=== PATIENT | female | born 1935 | race Caucasian/White ===

== ENCOUNTER 2017-11-07 20:51 | Inpatient (IN) | payer MEDICARE, OTHER ==
[~2017-11-07] VITALS: Ht 162.6 cm; Wt 71.9 kg
[~2017-11-07 20:51] MED LIST: GLIP10TA13 PO; HYDR25TA6 PO; LISI-170 PO; LISI40TA PO; METF500T4 PO; METO25TA35 PO; RIVA20TA PO; SIMV20TA3 PO; WARF5TAB PO
[2017-11-07] MEDS ORDERED: LISI-167 PO (21:11)
[2017-11-07] MEDS ORDERED: ASPIRIN 81 MG TABLET CHEW PO ONE (21:30)
[2017-11-07] MEDS ORDERED: SODIUM CHLORIDE 0.9% 1,000ML IVBOLUS ONE (21:30)
[2017-11-07 21:38] LABS: BASOPHILS # (AUTO) 0.04 x10^3/uL (0-0.1); BASOPHILS % (AUTO) 0 % (0-1); EOSINOPHILS % (AUTO) 1 % (1-7); LYMPHOCYTES # (AUTO) 3.06 x10^3/uL (1-3.4); LYMPHOCYTES % (AUTO) 27 % (22-44); MD NO; MEAN CORPUSCULAR HEMOGLOBIN 30.6 pg (27.0-34.8); MEAN CORPUSCULAR HGB CONC 33.7 g/dL (32.4-35.8); MEAN CORPUSCULAR VOLUME 90.9 fL (80-100); MEAN PLATELET VOLUME 9.8 fL (7.4-10.4); MONOCYTES # (AUTO) 0.69 x10^3/uL (0.2-0.8); MONOCYTES % (AUTO) 6 % (2-9); NEUTROPHILS # (AUTO) 7.41 x10^3/uL (1.8-6.8); NEUTROPHILS % (AUTO) 66 % (42-75); PLATELET COUNT 208 x10^3/uL (130-400); RED BLOOD COUNT 4.83 x10^6/uL (3.82-5.3); RED CELL DISTRIBUTION WIDTH 14.8 % (9.6-15.2)
[2017-11-07] MEDS ORDERED: ASPIRIN 81 MG TABLET CHEW ONE (21:41)
[2017-11-07 21:46] LABS: INTERNATIONAL NORMALIZED RATIO 4.5 (0.93-1.1)
[2017-11-07 21:48] LABS: CHLORIDE 107 mmol/L (98-107)
[2017-11-07 21:49] LABS: ALANINE AMINOTRANSFERASE 18 U/L (12-78); ALBUMIN 3.1 g/dL (3.4-5.0); ANION GAP 13 mmol/L (5-15); CALCIUM 8.4 mg/dL (8.5-10.1); CREATININE 1.12 mg/dL (0.55-1.02)
[2017-11-07 21:53] LABS: ALKALINE PHOSPHATASE 100 U/L (45-117); BILIRUBIN,TOTAL 0.9 mg/dL (0.2-1.0); TOTAL PROTEIN 7.2 g/dL (6.4-8.2)
[2017-11-07] MEDS ORDERED: POTASSIUM CHLORIDE 20 MEQ TAB.ER.PRT ONE (22:05)
[2017-11-07] MEDS ORDERED: POTASSIUM CHLORIDE 20 MEQ TAB.ER.PRT PO ONE ×2 (22:30→23:30)
[2017-11-07] MEDS: SODIUM CHLORIDE 0.9% 1,000 ML IV SCH (23:22)
[2017-11-07] MEDS: SIMVASTATIN 20 MG TABLET PO SCH (23:30)
[2017-11-07] MEDS ORDERED: DOCUSATE 100 MG CAPSULE PO PRN (23:30)
[2017-11-07] MEDS ORDERED: morphine SULFATE 10 MG/ML, 1ML IVPush PRN (23:30)
[2017-11-07] MEDS ORDERED: OXYcodone IR 5MG TABLET PO PRN (23:30)
[2017-11-07] MEDS ORDERED: ONDANSETRON 2MG/ML, 2ML IVPush PRN (23:30)
[2017-11-07] MEDS ORDERED: ENALAPRILAT 1.25 MG/ML, 2ML IVPush PRN (23:30)
[2017-11-07] MEDS ORDERED: POLYETHYLENE GLYCOL 17 GM PACKET PO PRN (23:30)
[2017-11-07] MEDS ORDERED: BISACODYL 10 MG SUPP PR PRN (23:30)
[2017-11-07] MEDS ORDERED: POTASSIUM CHLORIDE 40 MEQ in SODIUM CHLORIDE 0.9% 500 ML IV ONE (23:30)
[2017-11-07] MEDS ORDERED: hydrALAzine 20 MG/ML, 1ML IVPush PRN (23:30)
[2017-11-07 23:44] LABS: HEMOGLOBIN A1C 8.1 % (4.2-6.3)
[2017-11-07 23:45] LABS: FREE T4 (FREE THYROXINE) 1.5 ng/dL (0.76-1.46); THYROID STIMULATING HORMONE 1.99 mIU/L (0.358-3.740)
[2017-11-08] MEDS: INSULIN LISPRO 100 UNITS/ML, PEN SQ-INSULIN SCH ×5 (00:35→20:14)
[2017-11-08] MEDS ORDERED: POTASSIUM CHLORIDE 20 MEQ TAB.ER.PRT ONE (00:44)
[2017-11-08] MEDS ORDERED: ACETAMINOPHEN 325 MG TABLET ONE (02:59)
[2017-11-08] MEDS: ACETAMINOPHEN 325 MG TABLET PO PRN (03:04)
[2017-11-08 03:11] LABS: BASOPHILS # (AUTO) 0.03 x10^3/uL (0-0.1); BASOPHILS % (AUTO) 0 % (0-1); EOSINOPHILS # (AUTO) 0.04 x10^3/uL (0-0.4); EOSINOPHILS % (AUTO) 0 % (1-7); LYMPHOCYTES # (AUTO) 2.04 x10^3/uL (1-3.4); LYMPHOCYTES % (AUTO) 22 % (22-44); MD NO; MEAN CORPUSCULAR HEMOGLOBIN 30.9 pg (27.0-34.8); MEAN CORPUSCULAR HGB CONC 34.3 g/dL (32.4-35.8); MEAN CORPUSCULAR VOLUME 90.1 fL (80-100); MEAN PLATELET VOLUME 9.6 fL (7.4-10.4); MONOCYTES # (AUTO) 0.65 x10^3/uL (0.2-0.8); MONOCYTES % (AUTO) 7 % (2-9); NEUTROPHILS # (AUTO) 6.66 x10^3/uL (1.8-6.8); NEUTROPHILS % (AUTO) 71 % (42-75); PLATELET COUNT 221 x10^3/uL (130-400); RED BLOOD COUNT 4.46 x10^6/uL (3.82-5.3); RED CELL DISTRIBUTION WIDTH 14.8 % (9.6-15.2)
[2017-11-08 03:21] LABS: ALBUMIN 2.9 g/dL (3.4-5.0); ANION GAP 8 mmol/L (5-15); CALCIUM 7.9 mg/dL (8.5-10.1); CHLORIDE 109 mmol/L (98-107)
[2017-11-08 03:26] LABS: ALANINE AMINOTRANSFERASE 15 U/L (12-78); ALKALINE PHOSPHATASE 81 U/L (45-117); CREATININE 1.02 mg/dL (0.55-1.02); TOTAL PROTEIN 6.6 g/dL (6.4-8.2); TRIGLYCERIDES 446 mg/dL (50-200)
[2017-11-08 03:27] LABS: CHOL/HDL RATIO 6.2; CHOLESTEROL, TOTAL 149 mg/dL (140-239); HDL CHOL % 16 % (28-40); HDL CHOLESTEROL (DIRECT) 24 mg/dL (40-60); TROPONIN I 0.023 ng/mL (0.000-0.045)
[2017-11-08] MEDS ORDERED: OMNIPAQUE 350 MG/ML, 100ML BOTTLE ONE (06:06)
[2017-11-08] MEDS: SODIUM CHLORIDE 0.9% 1,000 ML IV SCH (07:02)
[2017-11-08 08:55] VITALS: BP 135/80
[2017-11-08] MEDS ORDERED: METOPROLOL TARTRATE 25 MG TABLET PO SCH (09:00)
[2017-11-08 09:55] LABS: TROPONIN I < 0.015 ng/mL (0.000-0.045)
[2017-11-08 09:56] LABS: INTERNATIONAL NORMALIZED RATIO 4.23 (0.93-1.1); PROTHROMBIN TIME 42.4 Seconds (9.6-11.5)
[2017-11-08] MEDS ORDERED: REGADENOSON 0.4 MG/5 ML SYRINGE ONE (10:10)
[2017-11-08] MEDS ORDERED: MAGNESIUM SULFATE PMX 2GM/50ML 50 ML IV ONE (10:30)
[2017-11-08] MEDS ORDERED: HOLD COUMADIN MC PRN (11:30)
[2017-11-08] MEDS: LISINOPRIL 10 MG TABLET PO SCH ×2 (13:56→20:06)
[2017-11-08 14:16] VITALS: BP 153/80
[2017-11-08 19:14] VITALS: BP 133/81
[2017-11-08] MEDS: SIMVASTATIN 20 MG TABLET PO SCH (20:06)
[2017-11-09 02:16] VITALS: BP 149/81
[2017-11-09 05:48] LABS: INTERNATIONAL NORMALIZED RATIO 4.42 (0.93-1.1); PROTHROMBIN TIME 44.2 Seconds (9.6-11.5)
[2017-11-09] MEDS ORDERED: HOLD COUMADIN MC PRN (08:00)
[2017-11-09 08:10] VITALS: BP 146/79
[2017-11-09] MEDS: METOPROLOL TARTRATE 25 MG TABLET PO SCH ×2 (09:06→21:35)
[2017-11-09] MEDS: INSULIN LISPRO 100 UNITS/ML, PEN SQ-INSULIN SCH ×4 (09:07→21:37)
[2017-11-09] MEDS: LISINOPRIL 10 MG TABLET PO SCH ×2 (09:07→21:35)
[2017-11-09 10:11] LABS: CULTURE INDICATED? YES; MICROSCOPIC INDICATED
[2017-11-09 13:28] VITALS: BP 154/85
[2017-11-09] MEDS ORDERED: CEFTRIAXONE PMX 1GM/50ML 50 ML IV SCH (15:30)
[2017-11-09] MEDS ORDERED: metFORMIN 500 MG TABLET PO ONE (16:30)
[2017-11-09 21:05] VITALS: BP 117/82
[2017-11-09] MEDS: SIMVASTATIN 20 MG TABLET PO SCH (21:36)
[2017-11-10 02:45] VITALS: BP 130/74
[2017-11-10 05:25] LABS: INTERNATIONAL NORMALIZED RATIO 2.94 (0.93-1.1); PROTHROMBIN TIME 29.6 Seconds (9.6-11.5)
[2017-11-10 05:30] LABS: ANION GAP 7 mmol/L (5-15); CHLORIDE 108 mmol/L (98-107); CREATININE 0.74 mg/dL (0.55-1.02)
[2017-11-10] MEDS ORDERED: MAGNESIUM SULFATE PMX 2GM/50ML 50 ML IV ONE (07:00)
[2017-11-10] MEDS: INSULIN LISPRO 100 UNITS/ML, PEN SQ-INSULIN SCH ×2 (07:13→11:22)
[2017-11-10] MEDS: METOPROLOL TARTRATE 25 MG TABLET PO SCH (08:00)
[2017-11-10] MEDS: LISINOPRIL 10 MG TABLET PO SCH (08:00)
[2017-11-10] MEDS ORDERED: POTASSIUM CHLORIDE 20 MEQ TAB.ER.PRT PO SCH (08:00)
[2017-11-10 08:03] VITALS: BP 167/92
[2017-11-10] MEDS ORDERED: metFORMIN XR 500 MG TAB.ER.24H PO SCH (09:00)
[2017-11-10] MEDS: ACETAMINOPHEN 325 MG TABLET PO PRN (11:20)
[2017-11-10] MEDS ORDERED: CEFD300C37 PO (12:56)
[2017-11-10] MEDS ORDERED: WARFARIN 2.5 MG TABLET PO-COUM ONE (18:00)
== END 2017-11-10 14:35 | disposition home or self-care (01) | DRG 871 ==
LOC: ED 21:27 → EDIP 22:02 → 5SO 11-08 08:44 → DCLOUNGE 11-10 14:13
PROVIDERS: ADMIT Internal Medicine; ATTEND Internal Medicine
DX: A41.9 Sepsis, unspecified organism (principal); N17.0 Acute kidney failure with tubular necrosis; E44.0 Moderate protein-calorie malnutrition; D68.69 Other thrombophilia; E11.65 Type 2 diabetes mellitus with hyperglycemia; E83.42 Hypomagnesemia; I11.0 Hypertensive heart disease with heart failure; I50.32 Chronic diastolic (congestive) heart failure; I48.2 Chronic atrial fibrillation; N39.0 Urinary tract infection, site not specified; R07.89 Other chest pain; I34.0 Nonrheumatic mitral (valve) insufficiency; R91.1 Solitary pulmonary nodule; B95.1 Streptococcus, group B, as the cause of diseases classified elsewhere; E78.00 Pure hypercholesterolemia, unspecified; E87.6 Hypokalemia; T45.515A Adverse effect of anticoagulants, initial encounter; Z91.19 Patient's noncompliance with other medical treatment and regimen; Z90.13 Acquired absence of bilateral breasts and nipples; Z88.8 Allergy status to other drugs, medicaments and biological substances; Z79.899 Other long term (current) drug therapy; Z79.01 Long term (current) use of anticoagulants; Z85.3 Personal history of malignant neoplasm of breast; Z68.27 Body mass index [BMI] 27.0-27.9, adult
CPT/HCPCS: 36415; 71045; 71260; 78452; 80048; 80053; 80061; 81001; 82962; 83036; 83735; 83880; 84439; 84443; 84484; 85025; 85379; 85610; 87086; 87147; 93005; 93017; 93306; 96365; 96366; J0696; J2785; J3480; Q9967; A9502; C9898; J1815; J2270; J3475; J7030; J7040

== ENCOUNTER 2018-12-26 18:56 | Emergency (ER) | payer OTHER, MEDICAID ==
[~2018-12-26] VITALS: Ht 165.1 cm; Wt 71.0 kg
[~2018-12-26 18:56] MED LIST changes: +AMOX1TAB64 PO; +CEFD300C37 PO; +INSU100I13 SQ-INSULIN; +LISI-167 PO; +METF500T17 PO; -METF500T4 PO
--- NOTE | 2018-12-26 19:25 | NUR ---
PT NOW SITTING UP WITH DAUGHTER AT BEDSIDE. PT NOW A/O X 4 AND STATES SHE IS FEELING BETTER.
[2018-12-26 20:05] VITALS: BP 137/81
[2018-12-26 20:17] LABS: BASOPHILS # (AUTO) 0.05 x10^3/uL (0-0.1); BASOPHILS % (AUTO) 1 % (0-1); EOSINOPHILS # (AUTO) 0.11 x10^3/uL (0-0.4); EOSINOPHILS % (AUTO) 1 % (1-7); LYMPHOCYTES # (AUTO) 1.56 x10^3/uL (1-3.4); LYMPHOCYTES % (AUTO) 18 % (22-44); MD NO; MEAN CORPUSCULAR HEMOGLOBIN 30.4 pg (27.0-34.8); MEAN CORPUSCULAR HGB CONC 32.5 g/dL (32.4-35.8); MEAN CORPUSCULAR VOLUME 93.6 fL (80-100); MONOCYTES # (AUTO) 0.67 x10^3/uL (0.2-0.8); MONOCYTES % (AUTO) 8 % (2-9); NEUTROPHILS # (AUTO) 6.16 x10^3/uL (1.8-6.8); NEUTROPHILS % (AUTO) 72 % (42-75); PLATELET COUNT 222 x10^3/uL (130-400); RED BLOOD COUNT 4.84 x10^6/uL (3.82-5.3); RED CELL DISTRIBUTION WIDTH 15.6 % (9.6-15.2)
[2018-12-26 20:28] LABS: INTERNATIONAL NORMALIZED RATIO 0.97 (0.93-1.1); PROTHROMBIN TIME 10.2 Seconds (9.6-11.5)
[2018-12-26 20:31] LABS: ALBUMIN 3.5 g/dL (3.4-5.0); ANION GAP 9 mmol/L (5-15); CALCIUM 9.2 mg/dL (8.5-10.1); CHLORIDE 107 mmol/L (98-107)
[2018-12-26 20:38] LABS: ALANINE AMINOTRANSFERASE 16 U/L (12-78); ALKALINE PHOSPHATASE 85 U/L (45-117); BILIRUBIN,TOTAL 0.6 mg/dL (0.2-1.0); CREATININE 0.83 mg/dL (0.55-1.02); TOTAL PROTEIN 7.4 g/dL (6.4-8.2); TROPONIN I < 0.015 ng/mL (0.000-0.045)
--- NOTE | 2018-12-26 20:48 | NUR ---
PT RESTING WITHOUT DISTRESS. PT WITH VSS AT THIS TIME AND NO REPORTED ALOC PER DAUGHTER.
== END 2018-12-26 21:32 | disposition home or self-care (01) ==
LOC: ED 19:15
DX: S00.03XA Contusion of scalp, initial encounter (principal); E11.9 Type 2 diabetes mellitus without complications; I48.91 Unspecified atrial fibrillation; E78.00 Pure hypercholesterolemia, unspecified; I10 Essential (primary) hypertension; W18.30XA Fall on same level, unspecified, initial encounter; Y93.89 Activity, other specified; Y92.89 Other specified places as the place of occurrence of the external cause; Y99.8 Other external cause status
CPT/HCPCS: 36415; 70450; 71045; 72020; 72050; 80053; 84484; 85025; 85610; 85730; 93005; 99284

== ENCOUNTER 2019-09-02 19:18 | Inpatient (IN) | payer OTHER, MEDICAID ==
[~2019-09-02] VITALS: Ht 162.6 cm; Wt 68.9 kg
[~2019-09-02 19:18] MED LIST changes: +SIMV20TA19 PO; -SIMV20TA3 PO
--- NOTE | 2019-09-02 19:25 | NUR ---
PT VENECIA MUKHERJEE FROM [facility]. PER PT AND EMS, PT HAD 6 EPISODES OF BRIGHT RED BLOODY STOOL SINCE 1600 TODAY. PT DENIES ANY HX OF GIB. PT IS ON XARELTO FOR AFIB. SPO2 WAS 89% ON RA PER EMS, SO PT WAS PLACED ON 2L O2 NC WITH SPO2 INCREASING TO 94%. OTHERWISE PT'S VSS. FSBG WAS 147 PER EMS. PT ARRIVES TO ED A&OX4, IN NO APPARENT DISTRESS. ER PA WAS IN TO SEE PT IMMEDIATELY. POC RV'WD WITH HER. NO FAMILY PRESENT AT THIS TIME.
[2019-09-02] MEDS ORDERED: SODIUM CHLORIDE FLUSH 10ML SYR IVF ONE (19:30)
[2019-09-02] MEDS ORDERED: SODIUM CHLORIDE 0.9% 1,000ML IVBOLUS ONE (19:30)
[2019-09-02 19:45] LABS: BASOPHILS # (AUTO) 0.02 x10^3/uL (0-0.1); BASOPHILS % (AUTO) 0 % (0-1); EOSINOPHILS # (AUTO) 0.25 x10^3/uL (0-0.4); EOSINOPHILS % (AUTO) 3 % (1-7); LYMPHOCYTES # (AUTO) 1.61 x10^3/uL (1-3.4); LYMPHOCYTES % (AUTO) 19 % (22-44); MD NO; MEAN CORPUSCULAR HEMOGLOBIN 30.6 pg (27.0-34.8); MEAN CORPUSCULAR HGB CONC 32.5 g/dL (32.4-35.8); MEAN CORPUSCULAR VOLUME 93.9 fL (80-100); MEAN PLATELET VOLUME 8.9 fL (7.4-10.4); MONOCYTES # (AUTO) 0.76 x10^3/uL (0.2-0.8); MONOCYTES % (AUTO) 9 % (2-9); NEUTROPHILS # (AUTO) 5.97 x10^3/uL (1.8-6.8); NEUTROPHILS % (AUTO) 69 % (42-75); PLATELET COUNT 220 x10^3/uL (130-400); RED BLOOD COUNT 4.75 x10^6/uL (3.82-5.3); RED CELL DISTRIBUTION WIDTH 15.5 % (9.6-15.2)
[2019-09-02 19:55] LABS: INTERNATIONAL NORMALIZED RATIO 1.09 (0.93-1.1); PROTHROMBIN TIME 11.6 Seconds (9.6-11.5)
[2019-09-02 19:56] LABS: ALANINE AMINOTRANSFERASE 10 U/L (12-78); ALBUMIN 3.6 g/dL (3.4-5.0); ANION GAP 6 mmol/L (5-15); CHLORIDE 112 mmol/L (98-107); CREATININE 0.96 mg/dL (0.55-1.02)
--- NOTE | 2019-09-02 19:58 | NUR ---
IV BOLUS INFUSING. PT UNDERSTANDS POC. WATCHING TV IN GURNEY, NO S/S OF DISTRESS.
[2019-09-02 19:59] LABS: ALKALINE PHOSPHATASE 68 U/L (45-117); BILIRUBIN,TOTAL 0.6 mg/dL (0.2-1.0); TOTAL PROTEIN 7.2 g/dL (6.4-8.2)
--- NOTE | 2019-09-02 21:10 | NUR ---
PT AMBULATED TO BR WITH STAND BY ASSIST.
--- NOTE | 2019-09-02 21:10 | NUR ---
[facility] refused patient, BY Sada Lowe for addmission at this time. Forms faxed for PSN to Katty Westbrook
[2019-09-02] MEDS ORDERED: METF500T27 PO (21:23)
[2019-09-02] MEDS ORDERED: METO25TA91 PO (21:23)
[2019-09-02] MEDS ORDERED: LABETALOL 5MG/ML, 20ML IVPush PRN (21:30)
[2019-09-02] MEDS ORDERED: ONDANSETRON 2MG/ML, 2ML IVPush PRN (21:30)
[2019-09-02] MEDS ORDERED: LIDODERM 5% PATCH TD PRN (21:30)
[2019-09-02] MEDS ORDERED: ACETAMINOPHEN 325 MG TABLET PO PRN (21:30)
[2019-09-02] MEDS ORDERED: ACET325T26 PO (21:44)
[2019-09-02] MEDS ORDERED: FLUT9.9S NAS (21:44)
[2019-09-02] MEDS ORDERED: LIDO1ADH51 TP (21:44)
[2019-09-02] MEDS ORDERED: LOSA25TA2 PO (21:44)
[2019-09-02] MEDS ORDERED: EMPA25TA PO (21:44)
[2019-09-02] MEDS ORDERED: CHOL10003 PO (21:44)
[2019-09-02] MEDS ORDERED: GABA-826 PO ×2 (21:44→21:46)
[2019-09-02] MEDS ORDERED: CALC-680 PO (21:44)
[2019-09-02] MEDS ORDERED: RIVA15TA PO (21:44)
[2019-09-02] MEDS ORDERED: MONT10TA11 PO (21:44)
[2019-09-02] MEDS ORDERED: FENO45CA PO (21:44)
[2019-09-02] MEDS ORDERED: ONDA4TAB7 PO (21:44)
[2019-09-02] MEDS ORDERED: DICL100G29 TP (21:44)
[2019-09-02] MEDS ORDERED: AMLO10TA8 PO (21:44)
[2019-09-02] MEDS ORDERED: CYAN2000 PO (21:44)
[2019-09-02] MEDS ORDERED: LACT1CAP44 PO (21:44)
[2019-09-02] MEDS ORDERED: TRAM100T13 PO (21:44)
[2019-09-02 22:30] VITALS: BP 153/86
[2019-09-02] MEDS: GABAPENTIN 100 MG CAPSULE PO SCH (22:43)
[2019-09-02] MEDS: SIMVASTATIN 20 MG TABLET PO SCH (22:44)
[2019-09-02] MEDS: MONTELUKAST 10 MG TABLET PO SCH (22:44)
[2019-09-03 02:00] VITALS: BP 162/90
[2019-09-03] MEDS: INSULIN LISPRO 100 UNITS/ML, PEN SQ-INSULIN SCH ×4 (08:41→20:57)
[2019-09-03 08:54] VITALS: BP 159/91
[2019-09-03] MEDS: GABAPENTIN 100 MG CAPSULE PO SCH ×3 (09:16→20:54)
[2019-09-03] MEDS: LOSARTAN 25MG TABLET PO SCH (09:16)
[2019-09-03] MEDS: AMLODIPINE 2.5 MG TABLET PO SCH (09:16)
[2019-09-03] MEDS: METOPROLOL SUCCINATE 25 MG TAB.ER.24H PO SCH (09:16)
[2019-09-03] MEDS ORDERED: LIDODERM REMOVE PATCH NOTE XX SCH (10:00)
[2019-09-03 13:01] VITALS: BP 162/87
[2019-09-03] MEDS: PANTOPROZOLE 40MG TABLET PO SCH (16:52)
[2019-09-03 20:14] VITALS: BP 185/74
[2019-09-03 20:43] VITALS: BP 130/73
[2019-09-03] MEDS: SIMVASTATIN 20 MG TABLET PO SCH (20:55)
[2019-09-03] MEDS: MONTELUKAST 10 MG TABLET PO SCH (20:55)
[2019-09-04 01:49] VITALS: BP 128/75
[2019-09-04] MEDS: PANTOPROZOLE 40MG TABLET PO SCH ×2 (05:29→16:52)
[2019-09-04] MEDS: INSULIN LISPRO 100 UNITS/ML, PEN SQ-INSULIN SCH ×3 (07:24→16:52)
[2019-09-04 07:32] VITALS: BP 129/74
[2019-09-04] MEDS: LOSARTAN 25MG TABLET PO SCH (08:48)
[2019-09-04] MEDS: METOPROLOL SUCCINATE 25 MG TAB.ER.24H PO SCH (08:48)
[2019-09-04] MEDS: GABAPENTIN 100 MG CAPSULE PO SCH ×2 (08:48→16:52)
[2019-09-04] MEDS: AMLODIPINE 2.5 MG TABLET PO SCH (08:49)
[2019-09-04] MEDS ORDERED: PANT20TA2 PO (11:08)
[2019-09-04] MEDS ORDERED: HYDR25SU3 PR (11:28)
[2019-09-04] MEDS ORDERED: HYDROCORTISONE 25 MG SUPP PR SCH (11:30)
== END 2019-09-04 16:55 | DRG 378 ==
LOC: ED 21:09 → EDIP 21:10 → 4WST 22:12
PROVIDERS: ADMIT Family Medicine; ATTEND Internal Medicine
DX: K92.2 Gastrointestinal hemorrhage, unspecified (principal); I48.20 Chronic atrial fibrillation, unspecified; I50.30 Unspecified diastolic (congestive) heart failure; D68.69 Other thrombophilia; I34.0 Nonrheumatic mitral (valve) insufficiency; I11.0 Hypertensive heart disease with heart failure; Z88.8 Allergy status to other drugs, medicaments and biological substances; E11.9 Type 2 diabetes mellitus without complications; E78.00 Pure hypercholesterolemia, unspecified; E78.5 Hyperlipidemia, unspecified; I27.20 Pulmonary hypertension, unspecified; J45.909 Unspecified asthma, uncomplicated; Z66 Do not resuscitate; Z79.01 Long term (current) use of anticoagulants; Z79.4 Long term (current) use of insulin
CPT/HCPCS: 36415; 80053; 82962; 83036; 85014; 85018; 85025; 85610; 85730; 86850; 86900; 93005; 96360; G0378; J7030

== ENCOUNTER 2019-11-06 14:34 | Inpatient (IN) | payer OTHER, MEDICAID ==
[~2019-11-06] VITALS: Ht 162.6 cm; Wt 66.1 kg
[~2019-11-06 14:34] MED LIST changes: +ACET325T26 PO; +AMLO10TA8 PO; +CALC-680 PO; +CHOL10003 PO; +CYAN2000 PO; +DICL100G29 TP; +EMPA25TA PO; +FENO45CA PO; +FLUT9.9S NAS; +GABA-826 PO; +HYDR25SU3 PR; +LACT1CAP44 PO; +LIDO1ADH51 TP; +LOSA25TA2 PO; +METF500T27 PO; +METO25TA91 PO; +MONT10TA11 PO; +ONDA4TAB7 PO; +PANT20TA2 PO; +RIVA15TA PO; +TRAM100T13 PO
[2019-11-06] MEDS ORDERED: ASPIRIN 81 MG TABLET CHEW PO ONE (15:00)
[2019-11-06] MEDS ORDERED: ASPIRIN 81 MG TABLET CHEW ONE (15:10)
[2019-11-06] MEDS ORDERED: NITROGLYCERIN OINT 2%, 1GM TP ONE ×2 (15:10→16:00)
[2019-11-06 15:18] LABS: BASOPHILS # (AUTO) 0.02 x10^3/uL (0-0.1); BASOPHILS % (AUTO) 0 % (0-1); EOSINOPHILS # (AUTO) 0.13 x10^3/uL (0-0.4); EOSINOPHILS % (AUTO) 2 % (1-7); LYMPHOCYTES # (AUTO) 2.03 x10^3/uL (1-3.4); LYMPHOCYTES % (AUTO) 25 % (22-44); MD NO; MEAN CORPUSCULAR HEMOGLOBIN 29.8 pg (27.0-34.8); MEAN CORPUSCULAR HGB CONC 33.1 g/dL (32.4-35.8); MEAN CORPUSCULAR VOLUME 89.8 fL (80-100); MEAN PLATELET VOLUME 9.5 fL (7.4-10.4); MONOCYTES # (AUTO) 0.66 x10^3/uL (0.2-0.8); MONOCYTES % (AUTO) 8 % (2-9); NEUTROPHILS # (AUTO) 5.33 x10^3/uL (1.8-6.8); NEUTROPHILS % (AUTO) 65 % (42-75); PLATELET COUNT 235 x10^3/uL (130-400); RED BLOOD COUNT 5.19 x10^6/uL (3.82-5.3); RED CELL DISTRIBUTION WIDTH 15.1 % (9.6-15.2)
[2019-11-06 15:19] LABS: ALBUMIN 3.8 g/dL (3.4-5.0); ANION GAP 7 mmol/L (5-15); CALCIUM 9.2 mg/dL (8.5-10.1); CHLORIDE 110 mmol/L (98-107); CREATININE 0.83 mg/dL (0.55-1.02)
--- NOTE | 2019-11-06 15:21 | NUR ---
PT'S DAUGHTER IN ROOM. PER DAUGHTER, PT C/O CP AT 0630 TODAY AT [facility], NITRO 3 TABS GIVEN AT FACILITY. WENT TO REVERSE UNIT OPERATOR, EKG DONE, SENT TO ED FOR ABNORMAL EKG AND CP. PT CURRENTLY DENIES CP. DENIES NAUSEA, DIZZINESS, LIGHTHEADEDNESS, COLD SWEATS. PT. PT A&OX4, RESP EVEN & UNLABORED, SPEECH CLEAR, SKIN WNL. FURNACE HELPER APPLIED: NSR. LAST ORAL INTAKE: 0700 TODAY. LAST BM: TODAY
[2019-11-06 15:24] LABS: TROPONIN I < 0.015 ng/mL (0.000-0.045)
[2019-11-06] MEDS ORDERED: AMLO5TAB10 PO (15:31)
[2019-11-06] MEDS ORDERED: RIVA15TA PO (15:31)
--- NOTE | 2019-11-06 15:31 | NUR ---
PER DAUGHTER, PT HAD ASA 81MG AT 0645 TODAY. WILL CONSULT ERP RE: ASA AND NTG ORDER.
[2019-11-06] MEDS ORDERED: SODIUM CHLORIDE FLUSH 10ML SYR IVF ONE (16:00)
--- NOTE | 2019-11-06 16:03 | NUR ---
PER DR MATHIS, APPLY NTG PASTE AND CANCEL ASA ORDER.
--- NOTE | 2019-11-06 17:01 | NUR ---
PT REPORT TO CARLOS ZIMMERMAN RN. PT CARE TRANSFERRED.
--- NOTE | 2019-11-06 17:45 | NUR ---
PT REPORT FROM JAZ ZIMMERMAN. PT CARE TO BE RESUMED.
--- NOTE | 2019-11-06 18:23 | NUR ---
PT REPORT CALLED TO JAZ LACEY FOR ROOM [id number]
--- NOTE | 2019-11-06 18:23 | NUR ---
PT AMBULATORY TO SU BR; GAIT STEADY; ACCOMPANIED BY DIGITAL STRATEGY DIRECTOR.
[2019-11-06] MEDS ORDERED: POLYETHYLENE GLYCOL 17 GM PACKET PO PRN (18:30)
[2019-11-06] MEDS ORDERED: MORPHINE SULFATE 4 MG/ML, 1ML IVPush PRN (18:30)
[2019-11-06] MEDS ORDERED: LIDODERM 5% PATCH TD PRN (18:30)
[2019-11-06] MEDS ORDERED: NITROGLYCERIN 0.4 MG BOTTLE (25 TABS) SL PRN (18:30)
[2019-11-06] MEDS ORDERED: ONDANSETRON 4 MG TABLET PO PRN (18:30)
[2019-11-06] MEDS ORDERED: hydrALAzine 20 MG/ML, 1ML IVPush PRN (18:30)
[2019-11-06] MEDS ORDERED: BISACODYL 10 MG SUPP PR PRN (18:30)
[2019-11-06 19:25] VITALS: BP 204/103
[2019-11-06 19:57] VITALS: BP 166/99
[2019-11-06] MEDS: FENOFIBRATE 54 MG TABLET PO SCH (21:00)
[2019-11-06] MEDS ORDERED: PANTOPRAZOLE 20MG TABLET PO SCH (21:00)
[2019-11-06] MEDS ORDERED: HYDROCORTISONE 25 MG SUPP PR SCH (21:00)
[2019-11-06] MEDS: SODIUM CHLORIDE FLUSH 10ML SYR IVF SCH (21:00)
[2019-11-06] MEDS: MONTELUKAST 10 MG TABLET PO SCH (21:00)
[2019-11-06] MEDS: ACETAMINOPHEN 325 MG TABLET PO SCH (21:01)
[2019-11-06] MEDS: GABAPENTIN 100 MG CAPSULE PO SCH (21:01)
[2019-11-06] MEDS: CALCIUM CITRATE 950 MG TABLET PO SCH (21:01)
[2019-11-06] MEDS: AMLODIPINE 5 MG TABLET PO SCH (21:01)
[2019-11-06] MEDS: SIMVASTATIN 20 MG TABLET PO SCH (21:01)
[2019-11-06 21:30] LABS: TROPONIN I < 0.015 ng/mL (0.000-0.045)
[2019-11-06 22:17] VITALS: BP 166/76
[2019-11-06] MEDS: INSULIN LISPRO 100 UNITS/ML, PEN SQ-INSULIN SCH (22:31)
[2019-11-07] MEDS ORDERED: PANT20TA2 PO (01:25)
[2019-11-07 01:38] VITALS: BP 153/85
[2019-11-07 03:28] LABS: ANION GAP 6 mmol/L (5-15); CALCIUM 9.4 mg/dL (8.5-10.1); CHLORIDE 111 mmol/L (98-107); CREATININE 0.77 mg/dL (0.55-1.02)
[2019-11-07 03:31] LABS: TROPONIN I < 0.015 ng/mL (0.000-0.045)
[2019-11-07] MEDS: ASPIRIN 81 MG TABLET EC PO SCH (05:37)
[2019-11-07 06:46] VITALS: BP 128/75
[2019-11-07] MEDS: INSULIN LISPRO 100 UNITS/ML, PEN SQ-INSULIN SCH ×4 (07:00→20:53)
[2019-11-07] MEDS ORDERED: REGADENOSON 0.4 MG/5 ML SYRINGE ONE (08:28)
[2019-11-07] MEDS: GABAPENTIN 100 MG CAPSULE PO SCH ×3 (09:00→20:52)
[2019-11-07] MEDS ORDERED: SENNA/DOCUSATE TABLET PO SCH (09:00)
[2019-11-07] MEDS ORDERED: FENOFIBRATE 54 MG TABLET PO SCH (09:00)
[2019-11-07] MEDS ORDERED: POTASSIUM CHLORIDE 20 MEQ TAB.ER.PRT PO ONE (10:00)
[2019-11-07 13:58] VITALS: BP 174/64
[2019-11-07] MEDS: ACETAMINOPHEN 325 MG TABLET PO SCH ×2 (14:49→20:51)
[2019-11-07] MEDS: CALCIUM CITRATE 950 MG TABLET PO SCH ×2 (14:49→20:51)
[2019-11-07] MEDS: CHOLECALCIFEROL 1,000 UNIT TABLET PO SCH (14:50)
[2019-11-07] MEDS: LOSARTAN 25MG TABLET PO SCH (14:50)
[2019-11-07] MEDS: METOPROLOL SUCCINATE 25 MG TAB.ER.24H PO SCH (14:50)
[2019-11-07] MEDS: PANTOPRAZOLE 20MG TABLET PO SCH (14:51)
[2019-11-07] MEDS: AMLODIPINE 5 MG TABLET PO SCH ×2 (14:51→20:51)
[2019-11-07] MEDS: RIVAROXABAN 15 MG TABLET PO SCH (14:51)
[2019-11-07] MEDS: SODIUM CHLORIDE FLUSH 10ML SYR IVF SCH ×2 (14:56→20:51)
[2019-11-07] MEDS ORDERED: POTASSIUM CHLORIDE 20 MEQ TAB.ER.PRT ONE ×2 (16:12→16:22)
[2019-11-07 20:00] VITALS: BP 162/81
[2019-11-07] MEDS: FENOFIBRATE 54 MG TABLET PO SCH (20:51)
[2019-11-07] MEDS: MONTELUKAST 10 MG TABLET PO SCH (20:52)
[2019-11-07] MEDS: SIMVASTATIN 20 MG TABLET PO SCH (20:52)
[2019-11-07] MEDS ORDERED: SCOPOLAMINE 1MG PATCH TD SCH (21:00)
[2019-11-07] MEDS ORDERED: LIDODERM REMOVE PATCH NOTE XX SCH (21:00)
[2019-11-08 00:49] VITALS: BP 100/55
[2019-11-08] MEDS: ASPIRIN 81 MG TABLET EC PO SCH (05:44)
[2019-11-08 06:45] LABS: BASOPHILS # (AUTO) 0.02 x10^3/uL (0-0.1); BASOPHILS % (AUTO) 0 % (0-1); EOSINOPHILS # (AUTO) 0.11 x10^3/uL (0-0.4); EOSINOPHILS % (AUTO) 2 % (1-7); LYMPHOCYTES # (AUTO) 1.71 x10^3/uL (1-3.4); LYMPHOCYTES % (AUTO) 27 % (22-44); MD NO; MEAN CORPUSCULAR VOLUME 90.9 fL (80-100); MEAN PLATELET VOLUME 9.3 fL (7.4-10.4); MONOCYTES % (AUTO) 11 % (2-9); NEUTROPHILS # (AUTO) 3.72 x10^3/uL (1.8-6.8); NEUTROPHILS % (AUTO) 59 % (42-75); PLATELET COUNT 203 x10^3/uL (130-400); RED BLOOD COUNT 4.78 x10^6/uL (3.82-5.3); RED CELL DISTRIBUTION WIDTH 14.7 % (9.6-15.2)
[2019-11-08 06:46] VITALS: BP 144/76
[2019-11-08 06:51] LABS: ANION GAP 5 mmol/L (5-15); CALCIUM 9.5 mg/dL (8.5-10.1); CHLORIDE 112 mmol/L (98-107); CREATININE 0.89 mg/dL (0.55-1.02)
[2019-11-08] MEDS: CHOLECALCIFEROL 1,000 UNIT TABLET PO SCH (08:07)
[2019-11-08] MEDS: ACETAMINOPHEN 325 MG TABLET PO SCH (08:07)
[2019-11-08] MEDS: AMLODIPINE 5 MG TABLET PO SCH (08:07)
[2019-11-08] MEDS: CALCIUM CITRATE 950 MG TABLET PO SCH (08:07)
[2019-11-08] MEDS: RIVAROXABAN 15 MG TABLET PO SCH (08:07)
[2019-11-08] MEDS: GABAPENTIN 100 MG CAPSULE PO SCH ×2 (08:07→16:08)
[2019-11-08] MEDS: PANTOPRAZOLE 20MG TABLET PO SCH (08:08)
[2019-11-08] MEDS: LOSARTAN 25MG TABLET PO SCH (08:08)
[2019-11-08] MEDS: METOPROLOL SUCCINATE 25 MG TAB.ER.24H PO SCH (08:08)
[2019-11-08] MEDS: INSULIN LISPRO 100 UNITS/ML, PEN SQ-INSULIN SCH ×3 (08:09→16:14)
[2019-11-08] MEDS: SODIUM CHLORIDE FLUSH 10ML SYR IVF SCH (08:14)
[2019-11-08] MEDS ORDERED: POTASSIUM CHLORIDE 20 MEQ TAB.ER.PRT PO ONE (09:00)
[2019-11-08 12:29] VITALS: BP 122/78
[2019-11-09] MEDS ORDERED: AMLODIPINE 5 MG TABLET PO SCH (09:00)
== END 2019-11-08 18:07 | DRG 304 ==
LOC: ED 15:27 → EDIP 16:26 → 5SO 18:30
PROVIDERS: ADMIT Internal Medicine; ATTEND Hospitalist
DX: I16.0 Hypertensive urgency (principal); J96.01 Acute respiratory failure with hypoxia; I50.32 Chronic diastolic (congestive) heart failure; D68.59 Other primary thrombophilia; R07.9 Chest pain, unspecified; I34.0 Nonrheumatic mitral (valve) insufficiency; E78.5 Hyperlipidemia, unspecified; I11.0 Hypertensive heart disease with heart failure; J45.909 Unspecified asthma, uncomplicated; I48.0 Paroxysmal atrial fibrillation; E11.9 Type 2 diabetes mellitus without complications; I45.10 Unspecified right bundle-branch block; Z85.3 Personal history of malignant neoplasm of breast; Z90.13 Acquired absence of bilateral breasts and nipples; Z88.8 Allergy status to other drugs, medicaments and biological substances; Z80.8 Family history of malignant neoplasm of other organs or systems; Z83.49 Family history of other endocrine, nutritional and metabolic diseases; Z79.01 Long term (current) use of anticoagulants; Z87.891 Personal history of nicotine dependence; Z79.84 Long term (current) use of oral hypoglycemic drugs
CPT/HCPCS: 36415; 71045; 78452; 80048; 82040; 82962; 84484; 85025; 93005; 93017; 99285; G0378; J2785; A9502; C9898; J1815

== ENCOUNTER 2020-03-30 12:47 | Emergency (ER) | payer OTHER, MEDICAID ==
[~2020-03-30] VITALS: Ht 162.6 cm; Wt 70.9 kg
[~2020-03-30 12:47] MED LIST changes: +AMLO5TAB10 PO; -WARF5TAB PO; +WARF5TAB2 PO
[2020-03-30] MEDS ORDERED: [UNRECOGNIZED DRUG - OTHER] (13:30)
[2020-03-30] MEDS ORDERED: OMEP-110 PO (13:30)
[2020-03-30] MEDS ORDERED: TRAM50TA2 PO (13:30)
[2020-03-30 13:36] LABS: BASOPHILS # (AUTO) 0.01 x10^3/uL (0-0.1); BASOPHILS % (AUTO) 0 % (0-1); EOSINOPHILS # (AUTO) 0.17 x10^3/uL (0-0.4); EOSINOPHILS % (AUTO) 2 % (1-7); LYMPHOCYTES # (AUTO) 1.13 x10^3/uL (1-3.4); LYMPHOCYTES % (AUTO) 10 % (22-44); MD NO; MEAN CORPUSCULAR HEMOGLOBIN 28.8 pg (27.0-34.8); MEAN CORPUSCULAR HGB CONC 31.6 g/dL (32.4-35.8); MEAN CORPUSCULAR VOLUME 91.2 fL (80-100); MONOCYTES # (AUTO) 0.63 x10^3/uL (0.2-0.8); MONOCYTES % (AUTO) 6 % (2-9); NEUTROPHILS # (AUTO) 9.09 x10^3/uL (1.8-6.8); NEUTROPHILS % (AUTO) 82 % (42-75); PLATELET COUNT 271 x10^3/uL (130-400); RED BLOOD COUNT 4.56 x10^6/uL (3.82-5.3); RED CELL DISTRIBUTION WIDTH 15.2 % (9.6-15.2)
--- NOTE | 2020-03-30 13:37 | NUR ---
JAZ WAGNER FROM [facility] CALLED TO GIVE REPORT. REPORT SAME FROM EMS. [facility] - [phone].
[2020-03-30 13:43] LABS: ALBUMIN 3.2 g/dL (3.4-5.0); ANION GAP 9 mmol/L (5-15); CALCIUM 9.4 mg/dL (8.5-10.1); CHLORIDE 109 mmol/L (98-107); CREATININE 1.09 mg/dL (0.55-1.02)
[2020-03-30 13:48] LABS: TROPONIN I < 0.015 ng/mL (0.000-0.045)
[2020-03-30] MEDS ORDERED: MAALOX/HYOSCYAMINE/LIDOCAINE 45 ML BTL PO ONE (14:00)
[2020-03-30] MEDS ORDERED: MAALOX/HYOSCYAMINE/LIDOCAINE 45 ML BTL ONE (14:41)
--- NOTE | 2020-03-30 15:25 | NUR ---
[facility] refused patient at this time for transport, pts daughter called and no answer at this time. [facility] willing to do transport but pt may need to do self pay. Per Nancy NARANJO she is arranging transport with public relations supervisor for [employer].
[2020-03-30 17:37] VITALS: BP 127/63
== END 2020-03-30 18:01 | disposition home or self-care (01) ==
LOC: ED 14:48
DX: R07.2 Precordial pain (principal); I10 Essential (primary) hypertension; E11.9 Type 2 diabetes mellitus without complications; I48.91 Unspecified atrial fibrillation; E78.00 Pure hypercholesterolemia, unspecified; I45.10 Unspecified right bundle-branch block
CPT/HCPCS: 36415; 71045; 80048; 82040; 83735; 84484; 85025; 93005; 99283